=== PATIENT | female | born 1975 | race Caucasian/White ===

== ENCOUNTER → 2018-01-06 | Outpatient (CLI) | payer BC ==
[~2018-01-06] MED LIST: CLC500CT PO; IBP600T1 PO; OXYC-12 PO; PREN1TAB39 PO
--- NOTE | 2018-01-06 12:55 | Diagnostic Imaging Report ---
INDICATION: Routine screening. COMPARISON: No prior mammograms are available for comparison. This is a baseline study. TECHNIQUE: Screening digital mammography was performed bilaterally with a Computer Aided Detection (CAD) system. FINDINGS: Both breasts demonstrate moderate parenchymal heterogeneity and increased density, limiting the sensitivity of mammography. There are benign calcifications bilaterally. No mass or malignant-appearing microcalcifications are seen. The axillae are unremarkable. IMPRESSION: No mammographic features suspicious for malignancy are identified. ACR BI-RADS Category 2: Benign findings. Result letter will be mailed to the patient. Note: At least 10% of breast cancer is not imaged by mammography. Dictated by: Dictated on workstation # [id number]
== END ==
LOC: RAD 08:02
PROVIDERS: ATTEND Internal Medicine
DX: Z12.31 Encounter for screening mammogram for malignant neoplasm of breast (principal)
CPT/HCPCS: 77067

== ENCOUNTER → 2019-02-12 | Outpatient (CLI) | payer BC ==
--- NOTE | 2019-02-12 08:04 | Diagnostic Imaging Report ---
INDICATION: Epigastric abdominal pain. Elevated bilirubin. TECHNIQUE: Multiple grayscale sonographic images were obtained of the right upper quadrant of the abdomen. CORRELATION STUDY: None FINDINGS: LIVER: There is uniform echotexture within the visualized portions of the liver. There is normal, hepatopedal direction of flow within the main portal vein. Liver length 13.5 cm. GALLBLADDER: There is presence of multiple mobile gallstones. No significant pericholecystic fluid or gallbladder wall thickening. COMMON BILE DUCT: Nondilated at 4 mm. The distal common bile duct unable to be visualized. PANCREAS: Visualized portions appearing unremarkable. RIGHT KIDNEY: Measures 9.9 x 4.5 x 5.2 cm. No hydronephrosis. AORTA/IVC: Not well visualized. OTHER: None. IMPRESSION: 1. Cholelithiasis with multiple mobile gallstones. No significant bile duct dilatation. Dictated by: Dictated on workstation # [id number]
== END ==
LOC: RAD 06:46
PROVIDERS: ATTEND Nurse Practitioner Family
DX: K80.20 Calculus of gallbladder without cholecystitis without obstruction (principal); E80.6 Other disorders of bilirubin metabolism; Z80.0 Family history of malignant neoplasm of digestive organs
CPT/HCPCS: 76705

== ENCOUNTER → 2019-03-01 | Outpatient (CLI) | payer BC ==
--- NOTE | 2019-03-01 23:04 | Diagnostic Imaging Report ---
PROCEDURE: US NONOB transvaginal. TECHNIQUE: Multiple real-time grayscale images were obtained of the pelvis in various projections endovaginally. INDICATION: Ovarian cyst. There are no prior studies available for comparison. FINDINGS: The uterus is nongravid and not enlarged measuring 9.6 x 5.7 x 4.4 CM. The endometrial lining is thickened measuring 14 MM (normal 5 mm or less). This finding is nonspecific. Correlation with the patient's menstrual cycle would be recommended. There is no solid mass involving the uterus to suggest fibroid. There may be a small 0.5 x 0.2 x 0.6 CM nabothian cyst. Both ovaries were identified. There is good blood flow to each ovary and there is no sign of torsion. There appears to be either 2 contiguous cysts or single septated cyst arising from the right ovary. The cyst measured 2.8 x 2.6 x 3.1 CM and 2.5 x 4.3 x 3.2 CM. The cyst do contain a few internal echoes suggesting that have been slightly complicated by infection and/or hemorrhage. The right ovary is unremarkable. There is no solid pelvic mass identified, but there may be a small amount of nonspecific free fluid. IMPRESSION: 1. There are either 2 contiguous slightly complicated cysts arising from the right ovary or a single septated cyst. If further evaluation of these findings is desired, then a short-term (4-6 week) followup pelvic ultrasound exam would be recommended. 2. There is no acute pelvic abnormality noted otherwise. Dictated by: Dictated on workstation # [id number]
== END ==
LOC: RAD 11:50
PROVIDERS: ATTEND Obstetrics & Gynecology
DX: R10.9 Unspecified abdominal pain (principal)
CPT/HCPCS: 76830

== ENCOUNTER → 2019-04-12 | Outpatient (CLI) | payer BC ==
--- NOTE | 2019-04-13 07:24 | Diagnostic Imaging Report ---
PROCEDURE: US Non-ob pelvis comp/trans. TECHNIQUE: Multiple realtime grayscale images were obtained of the pelvis in various projections endovaginally. Transabdominal imaging was also performed. INDICATION: Pelvic pain and ovarian cyst. FINDINGS: The recent pelvic ultrasound exam of 03/01/2019 suggested either two contiguous slightly complex cysts arising from the right ovary or single septated cyst. These cysts/cyst measured 2.8 x 2.6 x 3.1 cm and 2.5 x 4.3 x 3.2 cm. On this exam, there is only 1.2 x 1.2 x 1.0 cm cyst associated with the right ovary. The left ovary is surgically absent. There is no pelvic mass or free fluid collection noted. The uterus is nongravid and not enlarged measuring 9.2 x 5.7 x 4.4 cm. The endometrial lining measures 8 mm. There is no focal mass involving the uterus to suggest a fibroid. IMPRESSION: 1. The cyst/cysts associated with the right ovary seen on the prior study have diminished. There is only a 1.2 x 1.2 x 1.0 cm cyst present. 2. There is no acute pelvic abnormality noted. Dictated by: Dictated on workstation # [id number]
--- NOTE | 2019-04-13 08:58 | Diagnostic Imaging Report ---
Digital mammogram. Bilateral screening with 3-D tomosynthesis and CAD. This study was compared to the prior exam 01/06/2018. At this time there are no current complaints. The current study was also evaluated with a Computer Aided Detection (CAD) system. FINDINGS: The fibroglandular tissue in both breasts is heterogeneously dense. This does limit the sensitivity of this exam. Overall, there does not appear to have been any significant change when compared to the prior study. No primary or secondary sign of malignancy is noted. IMPRESSION: There is no radiographic evidence for malignancy. ACR BI-RADS Category 1: Negative. Result letter will be mailed to the patient. Note: At least 10% of breast cancer is not imaged by mammography. Dictated by: Dictated on workstation # [id number]
== END ==
LOC: RAD 09:18
PROVIDERS: ATTEND Obstetrics & Gynecology
DX: Z12.31 Encounter for screening mammogram for malignant neoplasm of breast (principal); N83.201 Unspecified ovarian cyst, right side; Z90.721 Acquired absence of ovaries, unilateral
CPT/HCPCS: 76830; 76856; 77067

== ENCOUNTER 2020-01-24 15:15 | Outpatient (RCR) | payer BC | END 2020-03-01 | disposition home or self-care (01) | PROVIDERS: ATTEND Internal Medicine | DX: M25.551 Pain in right hip (principal); M54.9 Dorsalgia, unspecified ==

== ENCOUNTER → 2020-07-26 | Outpatient (CLI) | payer BC ==
--- NOTE | 2020-07-26 16:34 | Diagnostic Imaging Report ---
INDICATION: Routine screening. COMPARISON: 04/12/2019 and 01/06/2018. TECHNIQUE: 2D and 3D bilateral screening mammography was performed with CAD. FINDINGS: Scattered fibroglandular densities are identified bilaterally. The parenchymal pattern is stable. No dominant mass or malignant appearing microcalcifications are seen. The axillae are unremarkable. IMPRESSION: No mammographic features suspicious for malignancy are identified. ACR BI-RADS Category 1: Negative. Result letter will be mailed to the patient. Note: At least 10% of breast cancer is not imaged by mammography. Dictated by: Dictated on workstation # [id number]
== END ==
LOC: RAD 11:00
PROVIDERS: ATTEND Obstetrics & Gynecology
DX: Z12.31 Encounter for screening mammogram for malignant neoplasm of breast (principal)
CPT/HCPCS: 77063; 77067

== ENCOUNTER 2021-09-11 14:54 | Outpatient (RCR) | payer BC | END 2021-09-21 | disposition home or self-care (01) | PROVIDERS: ATTEND Internal Medicine | DX: M54.50 Low back pain, unspecified (principal) ==

== ENCOUNTER → 2021-12-28 | Outpatient (CLI) | payer BC ==
--- NOTE | 2021-12-28 11:19 | Diagnostic Imaging Report ---
INDICATION: Routine screening. COMPARISON is made with prior mammograms 07/26/2020 and 04/12/2019. 2-D and 3-D bilateral screening mammography was performed with CAD. Both breasts are heterogeneously dense, limiting the sensitivity of mammography. There is some questionable architectural distortion in the central left breast on the MLO view projected just above the nipple line. This appears to be laterally located on the tomographic images. Additional views are recommended. Right breast is unremarkable. No malignant-appearing microcalcifications are seen. Axillae are unremarkable. IMPRESSION: BI-RADS 0 Left breast density and questionable architectural distortion. Further evaluation with additional views is recommended. ACR BI-RADS Category 0: Incomplete. (Needs additional imaging evaluation). Result letter will be mailed to the patient. Note: At least 10% of breast cancer is not imaged by mammography. Dictated by: Dictated on workstation # [id number]
== END ==
LOC: RAD 09:22
PROVIDERS: ATTEND Internal Medicine
DX: Z12.31 Encounter for screening mammogram for malignant neoplasm of breast (principal)
CPT/HCPCS: 77063; 77067

== ENCOUNTER → 2022-01-03 | Outpatient (CLI) | payer BC ==
--- NOTE | 2022-01-03 14:08 | Diagnostic Imaging Report ---
INDICATION: Questionable architectural distortion in the left breast. Patient presents for additional views. COMPARISON: Correlation is made with the screening study from 12/28/2021. TECHNIQUE: Unilateral left 2D and 3D diagnostic mammography was performed with CAD. This includes spot compression CC and ML views as well as conventional 90 degree lateral views. FINDINGS: There is a persistent area of density and questionable architectural distortion in the left breast at or just below the nipple line on the ML views. This appears to be laterally located based off the tomographic images. Further evaluation with ultrasound is recommended. No discrete mass is identified. No suspicious microcalcifications are seen. IMPRESSION: Continued questionable architectural distortion in the outer left breast at the 3-4 o'clock location approximately 5 to 6 cm from the nipple. Further evaluation of this area with ultrasound is recommended and will be performed today. ACR BI-RADS Category 0: Incomplete. (Needs additional imaging evaluation). Result letter will be mailed to the patient. Note: At least 10% of breast cancer is not imaged by mammography. Dictated by: Dictated on workstation # [id number]
--- NOTE | 2022-01-03 14:58 | Diagnostic Imaging Report ---
INDICATION: Questionable architectural distortion in the left breast. COMPARISON: Correlation is made with the diagnostic mammogram from earlier this same day and a screening mammogram from 12/28/2021. FINDINGS: Sonographic interrogation of the outer left breast was performed with particular attention to the 3 o'clock location 4-5 cm from the nipple. No sonographic abnormality is seen. There is a slightly prominent duct in the lateral left breast. No mass is identified. No definite region of architectural distortion is identified. IMPRESSION: No suspicious sonographic abnormality is identified. Even so, a followup left mammogram in 6 months is recommended to show continued stability. ACR BI-RADS Category 3: Probably benign findings. Result letter will be mailed to the patient. Note: At least 10% of breast cancer is not imaged by mammography. Dictated by: Dictated on workstation # [id number]
== END ==
LOC: RAD 13:45
PROVIDERS: ATTEND Internal Medicine
DX: R92.2 Inconclusive mammogram (principal)
CPT/HCPCS: 76642; 77065; G0279

== ENCOUNTER → 2022-07-24 | Outpatient (CLI) | payer BC ==
--- NOTE | 2022-07-24 13:44 | Diagnostic Imaging Report ---
INDICATION: Six-month followup of left breast architectural distortion. COMPARISON: Correlation is made with the prior mammograms of 12/28/2021 and 07/26/2020. TECHNIQUE: 2D and 3D unilateral left diagnostic mammography was performed with CAD. FINDINGS: The area of density and questionable architectural distortion in the upper outer left breast appears stable. No new mass or malignant-appearing microcalcifications are seen. The left axilla is unremarkable. IMPRESSION: Stable left mammogram. An additional 6 month followup is recommended to show continued stability. ACR BI-RADS Category 3: Probably benign findings. Result letter will be mailed to the patient. Note: At least 10% of breast cancer is not imaged by mammography. Dictated by: Dictated on workstation # [id number]
== END ==
LOC: RAD 12:49
PROVIDERS: ATTEND Internal Medicine
DX: N63.20 Unspecified lump in the left breast, unspecified quadrant (principal)
CPT/HCPCS: 77065; G0279

== ENCOUNTER → 2023-07-31 | Outpatient (CLI) | payer BC ==
--- NOTE | 2023-07-31 17:52 | Diagnostic Imaging Report ---
3-D bilateral screening mammogram with CAD. This study was compared to the prior exams of 07/24/2022, 12/28/2021 and 07/26/2020. At this time there are no current complaints. The current study was also evaluated with a Computer Aided Detection (CAD) system. FINDINGS: The fibroglandular tissue in both breasts is heterogeneously dense. This does limit the sensitivity of this exam. Overall, there does not appear to have been any significant change when compared to the prior study. No primary or secondary sign of malignancy is noted. IMPRESSION: There is no radiographic evidence for malignancy. ACR BI-RADS Category 1: Negative. Result letter will be mailed to the patient. Note: At least 10% of breast cancer is not imaged by mammography. Dictated by: Dictated on workstation # [id number]
== END ==
LOC: RAD 08:00
PROVIDERS: ATTEND Internal Medicine
DX: Z12.31 Encounter for screening mammogram for malignant neoplasm of breast (principal)
CPT/HCPCS: 77063; 77067